=== PATIENT | male | born 1960 | race Caucasian/White ===

== ENCOUNTER → 2022-12-29 11:56 | Outpatient (CLI) | payer OTHER, SELFPAY ==
--- NOTE | ~2022-12-29 | XR_ITS ---
Left Shoulder Technique: AP and scapular Y views were obtained. Clinical History: Pain Findings: No fracture or dislocation is seen. Osseous alignment is anatomic. Minimal degenerative magali nges noted the glenohumeral joint and acromioclavicular joint. Soft tissues are unremarkable. Impression: Minimal degenerative changes, as above. Reviewed, dictated and finalized at location . Impression: Minimal degenerative changes, as above.
== END ==
PROVIDERS: PCP Nurse Practitioner Family; Visit Provider Nurse Practitioner Family
DX: M19.012 Primary osteoarthritis, left shoulder (principal)
CPT/HCPCS: 73030

== ENCOUNTER 2023-04-17 10:55 | Outpatient (CLI) | payer OTHER, SELFPAY ==
--- NOTE | 2023-04-17 11:02 | ECG_ITS ---
Measurements Intervals [place] Rate: 71 P: 46 SD: 187 QRS: 34 QRSD: 102 T: 35 QT: 380 QTc: 414 Interpretive Statements SINUS RHYTHM NO PREVIOUS ECG AVAILABLE FOR COMPARISON Electronically Signed On 04-17-2023 14:40:45 CDT by Jazlyn Quinn M.D.
== END 2023-04-17 10:56 | disposition home or self-care (01) ==
LOC: ANHCARD 10:58
PROVIDERS: PCP Family Medicine; Visit Provider Nurse Practitioner Family
DX: R07.9 Chest pain, unspecified (principal)
CPT/HCPCS: 93005

== ENCOUNTER → 2023-09-07 10:55 | Outpatient (CLI) | payer OTHER, SELFPAY ==
--- NOTE | ~2023-09-07 | XR_ITS ---
Left Knee Technique: AP, lateral, and sunrise views were obtained. Clinical History: Pain Findings: No fracture or dislocation is seen. Osseous alignment is anatomic. Mild degenerative spurri ng noted about the knee. Probable minimal chondrocalcinosis of the menisci. Soft tissues are otherwis e unremarkable. No joint effusion is seen. Impression: Mild degenerative change. Minimal chondrocalcinosis of the menisci. Reviewed, dictated and finalized at location [facility] Impression: Mild degenerative change. Minimal chondrocalcinosis of the menisci.
== END ==
PROVIDERS: PCP Family Medicine; Visit Provider Nurse Practitioner Family
DX: M17.12 Unilateral primary osteoarthritis, left knee (principal); M11.262 Other chondrocalcinosis, left knee
CPT/HCPCS: 73564

== ENCOUNTER 2023-09-26 08:22 | Outpatient (CLI) | payer OTHER, SELFPAY ==
--- NOTE | 2023-09-26 08:35 | ECHO_ITS ---
Patient Info Name: Terry Velasco Age: 63 years : 1960 Gender: Male Ht: 74 in Wt: 318 lbs BSA: 2.80 m2 HR: 88 bpm BP: 163 / 95 mmHg Technical Quality: Fair Exam Date: 09/26/2023 9:07 AM Exam Location: Echo Lab Patient Status: Outpatient Admit Date: 09/26/2023 Staff Ordering Physician: Pao Whelan NP Digital Camera Technician: Floridalma Anaya RDCS Attending Provider: Pao Whelan NP Exam Type: CA echo doppler color flow Study Info Indications - chest pain Complete two-dimensional, color flow and Doppler transthoracic echocardiogram is performed. Summary 1. Complete two-dimensional, color flow and Doppler transthoracic echocardiogram is performed. 2. Left ventricular chamber dimension is normal. 3. Left ventricular systolic function is normal, estimated at 60-65%. 4. There is mild concentric increased left ventricular wall thickness. 5. The left ventricular diastolic function is grade I diastolic dysfunction. 6. E/e' 8 is minimally elevated. 7. Left atrial chamber dimension is mildly enlarged. 8. There is trace mitral valve regurgitation. 9. There is trace tricuspid valve regurgitation. 10. No pulmonary hypertension, estimated pulmonary arterial systolic pressure is 26 mmHg. Left Ventricle E/e' 8 is minimally elevated. Left ventricular chamber dimension is normal. Left ventricular systolic function is normal, estimated at 60-65%. There is mild concentric increased left ventricular wall thickness. The left ventricular diastolic function is grade I diastolic dysfunction. Right Ventricle Right ventricular systolic function is normal and with normal TAPSE 2.3 cm. Right ventricular chamber dimension is normal. Left Atria Left atrial chamber dimension is mildly enlarged. Right Atria Right atrial chamber dimension is normal. Aortic Valve The aortic valve is trileaflet. There is no aortic valve stenosis. There is no aortic valve regurgitation. Pulmonic Valve There is no pulmonic regurgitation. Mitral Valve There is no mitral valve stenosis. There is trace mitral valve regurgitation. Tricuspid Valve There is trace tricuspid valve regurgitation. No pulmonary hypertension, estimated pulmonary arterial systolic pressure is 26 mmHg. Pericardium/Pleural There is no pericardial effusion. Inferior Vena Cava Normal inferior vena cava with >50% collapse upon inspiration consistent with normal right atrial pressure, 5 mmHg. Aorta The aortic root size at the sinus of Valsalva is normal. Left Ventricular Outflow Tract Name Value Normal LVOT 2D LVOT Diameter 2.1 cm LVOT Doppler LVOT Peak Gradient 4 mmHg LVOT Mean Gradient 2 mmHg LVOT VTI 19 cm LVOT VTI/AV VTI Ratio 0.7 LVOT Stroke Volume 66 ml LVOT CO 15.5 l/min LVOT CI 5.5 l/min/m2 Pulmonic Valve Name Value Normal RVOT Doppler
--- NOTE | 2023-09-26 08:35 | EST_ITS ---
Patient Info Name: Terry Velasco Age: 63 years : 1960 Gender: Male Ht: 75 in Wt: 300 lbs BSA: 2.73 m2 HR: 82 bpm BP: 148 / 90 mmHg Heart Rhythm: Sinus Rhythm Exam Date: 09/26/2023 10:01 AM Exam Location: Echo Lab Patient Status: Outpatient Admit Date: 09/26/2023 Staff Ordering Physician: Pao Whelan NP Attending Provider: Pao Whelan NP Exercise Technologist: Keisha Voss [facility] Exercise Physician: Antwan Vora DO Exam Type: CA stress test treadmill Study Info A treadmill exercise stress test was performed. Summary 1. 1. Negative Andre exercise stress test for ischemic ST changes by ECG criteria. 2. 2. Reduced functional capacity, achieving 5 METs of workload. 3. 3. Baseline hypertension. 4. 4. Appropriate HR response to exercise. 5. 5. Appropriate HR recovery at 1 minute post exercise. 6. 6. No imaging with stress testing. 7. 7. Patient informed of the above results. Protocol: Andre Stress ECG Details Stage: REST Duration (min): 1 min : 11 sec Speed (mph): 0.0 Grade (%): 0 HR (bpm): 81 SBP (mmHg): 148 DBP (mmHg): 90 METS: --- Stage: REST Duration (min): 8 min : 8 sec Speed (mph): 0.0 Grade (%): 0 HR (bpm): 88 SBP (mmHg): 148 DBP (mmHg): 90 METS: --- Stage: STAGE 1 Duration (min): 1 min : 0 sec Speed (mph): 1.7 Grade (%): 10 HR (bpm): 113 SBP (mmHg): 148 DBP (mmHg): 90 METS: --- Stage: STAGE 1 Duration (min): 2 min : 0 sec Speed (mph): 1.7 Grade (%): 10 HR (bpm): 124 SBP (mmHg): 148 DBP (mmHg): 90 METS: --- Stage: STAGE 1 Duration (min): 3 min : 0 sec Speed (mph): 1.7 Grade (%): 10 HR (bpm): 132 SBP (mmHg): 165 DBP (mmHg): 122 METS: --- Stage: STAGE 2 Duration (min): 0 min : 12 sec Speed (mph): 2.5 Grade (%): 12 HR (bpm): 133 SBP (mmHg): 165 DBP (mmHg): 122 METS: --- Stage: RECOVERY Duration (min): 0 min : 47 sec Speed (mph): 0.0 Grade (%): 0 HR (bpm): 131 SBP (mmHg): 165 DBP (mmHg): 122 METS: --- Stage: RECOVERY Duration (min): 1 min : 47 sec Speed (mph): 0.0 Grade (%): 0 HR (bpm): 105 SBP (mmHg): 165 DBP (mmHg): 122 METS: --- Stage: RECOVERY Duration (min): 2 min : 47 sec Speed (mph): 0.0 Grade (%): 0 HR (bpm): 100 SBP (mmHg): 196 DBP (mmHg): 89 METS: --- Stage: RECOVERY Duration (min): 3 min : 47 sec Speed (mph): 0.0 Grade (%): 0 HR (bpm): 98 SBP (mmHg): 196 DBP (mmHg): 89 METS: --- Stage: RECOVERY Duration (min): 4 min : 47 sec Speed (mph): 0.0 Grade (%): 0 HR (bpm): 93 SBP (mmHg): 160 DBP (mmHg): 92 METS: --- Stage: RECOVERY Duration (min): 5 min : 12 sec Speed (mph): 0.0 Grade (%): 0 HR (bpm): 93 SBP (mmHg): 160 DBP (mmHg): 92 METS: --- Rest HR: 88 bpm Peak HR: 136 bpm Rest Sys BP: 148 mmHg Peak Sys BP: 196 mmHg Max Pred HR: 156 bpm % Max Pred HR: 87 % Target HR: 133 bpm Max RPP: 26,656 bpm*mmHg
== END 2023-09-26 08:23 | disposition home or self-care (01) ==
PROVIDERS: PCP Family Medicine; Visit Provider Nurse Practitioner Family
DX: R07.9 Chest pain, unspecified (principal)
CPT/HCPCS: 93017; 93306

== ENCOUNTER 2024-10-08 08:50 | Outpatient (CLI) | payer MEDICARE, OTHER, SELFPAY ==
--- NOTE | 2024-11-03 09:10 | WPDSLEEPSTUD ---
Sleep Study Date of Study: 10/08/24 Ordering Provider: Bahman Velasquez MD Interpreting Physician: Jillian Franco DO Sleep Study Type: Split Polysomnogram Height: 1.88 m Weight: 156.489 kg Body Mass Index: 44.3 Neck Circumference (inches): 19 [place]: 3 Reason for Sleep Study Difficulty staying asleep Sleep History The patient is a 64-year-old male that had a sleep study ordered by his primary care physician for evaluation of sleep apnea. The patient denies awakening from sleep short of breath. He denies awakening at night with heartburn, belching or cough. He frequently snores but is never loud enough that others complain. He denies having trouble sleeping when he has a cold. He denies waking up gasping for air throughout the night. He denies having breathing problems at night observed by himself or others. He occasionally sweats excessively at night. He denies having heart palpitations or irregular heartbeats during the night. He occasionally falls asleep during the day but never while driving. He denies sleep paralysis and cataplexy. He denies having trouble at school or work due to sleepiness. He rarely experiences vivid dreamlike scenes upon awakening or falling asleep. He denies feeling afraid of going to sleep. He denies having nightmares. He occasionally remembers his dreams. He occasionally has thoughts racing through his mind. He occasionally feels sad or depressed. He constantly has anxiety. He rarely has muscular tension. He frequently notices parts of his body jerk. He rarely kicks during the night. He frequently has crawling and aching feelings in his legs but rarely has leg pain during the night. He occasionally grinds his teeth during sleep but denies awakening with morning jaw pain. He is rarely bothered by pain during the day and rarely awakened by pain during the night. He occasionally wakes up feeling stiff in the morning. He occasionally wakes up with sore or achy muscles. He occasionally wakes up with pain in the neck, spine and other joints. Goes to bed at 10:00 p.m. on both weekdays and weekends. It takes him 30 minutes to fall asleep. He wakes up 3-4 times throughout the night for unknown reasons and it takes him 30 minutes to fall back asleep. He wakes up at 5:00 a.m. on both weekdays and weekends. He typically gets 4-6 hours of sleep per night. He will stay in bed for 2 hours after waking up in the morning. He currently lives with his . He denies consuming any caffeinated beverages within 2 hours of bedtime. He denies engaging in physical exercise before bedtime. He will read and watch television before falling asleep. He denies taking naps in afternoon or the evening. He denies consuming any caffeinated beverages throughout the day. He denies tobacco, alcohol and recreational drug use. [facility] Past Medical History Medical History Colon cancer screening Cologuard was negative on 06/15/2024 with recheck in 3 years. Left knee pain BMI 40.0-44.9, adult Hypersomnia Snoring BMI 38.0-38.9,adult Nocturnal sleep-related eating disorder Excess sun exposure Hammertoe of right foot Chest pain Exercise stress test on 09/26/2023 was negative for ischemia with decreased functional capacity. Echocardiogram revealed normal systolic function with ejection fraction of 60-65% with grade 1 diastolic dysfunction and trace mitral valve regurgitation and tricuspid valve regurgitation Irritation of right eye Corneal irritation of right eye Left shoulder pain COVID-19 (11/16/22) tested positive 11/18/2022 At moderate risk for fall (~2021) Morbid obesity with BMI of 40.0-44.9, adult Encounter for prostate cancer screening PSA 0.23 on 05/09/2022. PSA 0.32 on 10/18/2023. Tremor Anemia hemoglobin 15.7 with hematocrit 47.0 on 10/20/2022. Hemoglobin 15.9, iron 121, 30% saturation, ferritin 40, vitamin B12 562, folic acid 24 on 05/15/2024. Insomnia Nocturia PSA 0.23 on 05/09/2022. Constipation due to opioid therapy Chronic depression BMI 36.0-36.9,adult Obesity (BMI 30-39.9) Vitamin D deficiency Level slightly low at 29 on 05/09/2022. Normal at 43 on 05/14/2023. Vitamin B12 deficiency normal at 1268 with folic acid 24 and hemoglobin 15.8 on 05/09/2022. Normal at 1861 on 05/14/23. Normal at 562 on 05/15/2024. Peripheral polyneuropathy secondary to alcohol abuse. Normal vitamin B12 and folic acid. SRIDHAR (generalized anxiety disorder) Abnormal fasting glucose Glucose 75 with hemoglobin A1c 5.3 on 05/09/2022. Glucose 96 on 10/10/2022. Glucose 89 with hemoglobin A1c 5.4 on 05/14/2023. Fasting glucose 107 on 10/18/2023. Glucose 98 with hemoglobin A1c 5.9 on 05/15/2024. Mixed hyperlipidemia Total cholesterol 251, triglycerides 164, HDL 57 and LDL 163 on 05/09/2022. Total cholesterol 241, HDL 47, triglycerides 170, LDL 162 with ratio of 5.1 on 10/10/2022. Cholesterol 219, triglycerides 199, HDL 47, LDL 138 with ratio 4.7 on 05/14/2023. Total cholesterol 221, triglycerides 217, HDL 51, triglycerides 134 with ratio 4.3 on 10/18/2023. Cholesterol 228, triglycerides 138, HDL 52, LDL 149 with ratio 4.4 on 05/15/2024. Chronic bilateral low back pain without sciatica Spinal stenosis Neuropathy Hypertension History of blood clots Anxiety Surgical History Surgical History Previous back surgery History of surgery on upper extremity History of left knee surgery H/O hernia repair Family History Family History Father Family history of coronary artery disease Patient's father is , Onset Age: 59 Alcoholism Mother Patient's mother is , Onset Age: 76 Cancer Depression Grandparent Heart disease Other Hypertension Social History Social History Smoking status: Former smoker Tobacco type: smokeless tobacco Smokeless tobacco user: chewing tobacco Smoking end date: 09/03/08 Alcohol intake: former Alcohol use details: stopped in 2017 Substance use: never Substance use type: does not use Do You Feel Safe in your Home?: Yes Lack of Transportation: No Lack of Food: Never True Current Housing: I Have Housing Concerned About Future Housing: No Difficulty Paying Gas/Electric Bills: No Difficulty Paying for Meds: Decline to Answer Currently Unemployed: No Education: Trade/Vocational Certificate Difficulty w/ Childcare or Family Care: No Living arrangements: with family Occupation/Education: retired Gender identity (if verbalized by the patient): Male Sexual Orientation (if Verbalized by the Patient): Straight or Heterosexual Spiritual care concerns: No Agree to blood products: Yes Medications Home Medications ?Medication ?Instructions ?Recorded ?Confirmed ?Type cyanocobalamin (vitamin B-12) 1,000 mcg PO DAILY 05/09/22 07/18/24 History 1,000 mcg tablet cholecalciferol (vitamin D3) 125 5,000 unit PO DAILY 06/06/22 07/18/24 History mcg (5,000 unit) tablet magnesium oxide 500 mg PO BID 11/09/22 07/18/24 History multivitamin 1 tablet PO DAILY 11/09/22 07/18/24 History gabapentin 600 mg tablet 600 mg PO TID #270 tabs 02/21/24 07/18/24 Rx bupropion HCl 150 mg 24 hr tablet, 150 mg PO QAM #90 tabs 06/19/24 07/18/24 Rx extended release (Wellbutrin XL) duloxetine 60 mg capsule,delayed 60 mg PO DAILY #90 caps 07/18/24 07/18/24 Rx release buspirone 15 mg tablet 15 mg PO TID #270 tabs 09/17/24 Rx Sleep Procedure A full night split study using the [employer] multi-channel system recorded the standard physiologic parameters including EEG, EOG, submentalis EMG, anterior tibialis EMG, EKG, body position, nasal and oral airflow using nasal pressure sensor and thermistor.? Respiratory parameters of chest and abdominal movements were recorded with Respiratory Inductance Plethysmography belts. Oxygen saturation was recorded by pulse oximetry. Video monitoring was also performed. Sleep stages, periodic limb movements, and EEG arousals were scored in 30 second epochs according to the criteria of the AASM Scoring Manual. The Apnea-Hypopnea Index was calculated using CMS guidelines for definition of hypopnea with 4% O2 desaturations while scoring respiratory events. Sleep Architecture During the diagnostic portion of the study, the total recording time was 204.6 minutes. The total sleep time was 176.0 minutes. Sleep latency was 9.6 minutes.? REM latency was 174.0 minutes. Sleep Efficiency was 86.0%. The patient had 11 awakenings for an awakening index of 3.8. Wake after sleep onset time was 19.0 minutes. The patient spent 31.0 minutes, 17.6% of total sleep time in Stage N1. The patient spent 111.0 minutes, 63.1% in Stage N2. The patient spent 22.0 minutes, 12.5% in Stage N3. The patient spent 12.0 minutes, 6.8% in Stage REM sleep. At 01:37:00 AM the patient was placed on PAP treatment and was titrated at pressures ranging from 5 cm H20 up to 11 cm H20. During the treatment portion of the study, the total recording time was 265.0 minutes.? The total sleep time was 194.5 minutes. Sleep latency was 5.0 minutes. REM latency was 69.0 minutes. Sleep Efficiency was 73.4%. Wake after Sleep Onset time was 66.0 minutes. The patient spent 33.0 minutes, 17.0% of total sleep time in Stage N1. The patient spent 139.0 minutes, 71.5% in Stage N2. The patient spent 0.0 minutes, 0.0% in Stage N3. The patient spent 22.5 minutes, 11.6% in Stage REM. REM without atonia was seen on the following epochs: 395-396, 398, 401-403, 572-586, 845-846, 848-849, 851, 853 and 878. Gross movement of extremities were seen on video. Respiratory Analysis During the diagnostic portion of the study, the patient had 36 hypopneas and 2 obstructive apneas for an overall Apnea Hypopnea Index of 13.0 events per hour. The REM Apnea Hypopnea Index was 50.0. The NREM Apnea Hypopnea Index was 10.6. The patient had a Central Apnea Hypopnea Index of 0. There was no evidence of Basil-Drummond Respirations. During the treatment portion of the study, the patient had 16 hypopneas for an overall Apnea Hypopnea Index of 4.9 events per hour. The REM Apnea Hypopnea Index was 2.7. The NREM Apnea Hypopnea Index was 5.2. The patient had a Central Apnea Hypopnea Index of 0. There was no evidence of Basil-Drummond Respirations. The patient was started on CPAP 5 cm H2O and titrated to CPAP 11 cm H2O due to hypopneas. The patient was able to fall asleep starting on CPAP 5 cm H2O. The patient was able to achieve REM sleep starting on CPAP 5 cm H2O. The patient was able to achieve a residual AHI with both NREM and REM sleep on 5 cm H2O. On CPAP 5 cm H2O, the patient spent 102 minutes in NREM and 12 minutes in REM with 2 hypopneas, resulting in an AHI of 1.1. The patient had a sleep efficiency of 73.5% on this pressure setting. While the patient's sleep apnea resolved on CPAP 5 cm H2O, his oxygen saturation dropped to 86% when he switched to his left side. Arousals During the diagnostic portion of the study, there were a total of 75 arousals for an arousal index of 25.6.? There were 22 respiratory arousals for an index of 7.5. There were 4 periodic limb movement arousals for an index of 1.4.? There were 5 isolated limb movement arousals for an index of 1.7. There were 43 spontaneous arousals for an index of 14.7. During the treatment portion of the study, there were a total of 54 arousals for an index of 16.7.? There were 8 respiratory arousals for an index of 2.5. There were 0 periodic limb movement arousals for an index of 0.? There were 6 isolated limb movement arousals for an index of 1.9. There were 39 spontaneous arousals for an index of 12.0. Periodic Limb Movements During the diagnostic portion of the study, the patient had 9 isolated limb movements with an index of 3.1. The patient had 23 periodic limb movements with an index of 7.8. The patient had a total of 32 limb movements with a total limb movement index of 10.9. During the treatment portion of the study, the patient had 26 isolated limb movements with an index of 8.0. The patient had 0 periodic limb movements with an index of 0. The patient had a total of 26 limb movements with a total limb movement index of 8.0. Oximetry Data During the diagnostic portion of the study, the patient had an average oxygen saturation of 90.7% in wake with a minimum oxygen saturation of 84% and a maximum oxygen saturation of 95%. The patient had an average oxygen saturation of 89.9% in sleep with a minimum oxygen saturation of 81.0% and a maximum oxygen saturation of 95.0%. The patient had 66 oxygen desaturations resulting in an Oxygen Desaturation Index of 22.5. The patient spent 44.2 minutes, 21.7% of total sleep time with an oxygen saturation less than 88%. During the treatment portion of the study, the patient had an average oxygen saturation of 90.3% in wake with a minimum oxygen saturation of 84.0% and a maximum oxygen saturation of 96.0%. The patient had an average oxygen saturation of 89.5% in sleep with a minimum oxygen saturation of 85.0% and a maximum oxygen saturation of 96.0%. The patient had 23 oxygen desaturations resulting in an Oxygen Desaturation Index of 7.1. The patient spent 75.7 minutes, 28.7% of total sleep time with an oxygen saturation less than 88%. Snoring Profile Mild snoring was present in the baseline portion of the study. The snoring resolved once the patient was started on CPAP. Cardiac Profile The EKG lead showed normal sinus rhythm. No arrhythmias or premature beats were seen. During the diagnostic portion of the study, the average pulse rate was 76.8 bpm.? The minimum pulse rate was 66.0 bpm. The maximum pulse rate was 104.0 bpm. During the treatment portion of the study, the average pulse rate was 77.2 bpm.? The minimum pulse rate was 66.0 bpm. The maximum pulse rate was 101.0 bpm. EEG Profile No signs of seizure activity seen. Assessment and Plan Assessment and Plan (1) SANCHO (obstructive sleep apnea): Code(s): G47.33 - Obstructive sleep apnea (adult) (pediatric) Status: Acute Assessment and Plan: During the baseline portion of the study, the patient had an overall AHI of 13.0 with desaturation down to 81%. This is consistent with mild sleep apnea. Due to the patient's insomnia, he qualifies for treatment. The patient's sleep apnea resolved on the initial pressure setting but his SpO2<88%. There is concern for underlying lung disease due to hypoxemia in the absence of respiratory events. Supplemental oxygen was not started in this study. I recommend that the patient be prescribed Resmed CPAP 5 cm H2O with 2 lpm of O2, size medium Resmed F20 full face mask, CPAP filters/tubing and heated humidity. I recommend that the patient undergo nocturnal oximetry 2 weeks after starting CPAP to ensure his SpO2 > 90%. This should be used with all episodes of sleep.? Compliance should be reviewed within 31-90 days of starting therapy for usage greater than 4 hours per night greater than 70% of the nights. The patient should be asked about symptoms such as?excessive daytime sleepiness, quality of sleep, decreased nocturia, increased?mental functioning such as memory, mood, and concentration. I recommend that this patient be followed by Sleep Medicine due to the complexity of his sleep issues. (2) Nocturnal hypoxemia: Code(s): G47.34 - Idiopathic sleep related nonobstructive alveolar hypoventilation Status: Acute Assessment and Plan: The patient had a baseline oxygen saturation of 90% while awake in the left lateral position. In the baseline portion of the study, he spent 75.7 minutes, 28.7% of total recording time with an SpO2<88%. The level of hypoxemia is out of proportion to the patient's sleep apnea severity. The patient has no history of lung disease and is not on any inhalers. There is concern for underlying lung disease. i recommend that the patient have a 2 view CXR and a PFT for further evaluation. (3) REM behavioral disorder: Code(s): G47.52 - REM sleep behavior disorder Status: Acute Assessment and Plan: REM without atonia was seen on the following epochs: 395-396, 398, 401-403, 572-586, 845-846, 848-849, 851, 853 and 878. Gross movement of extremities were seen on video. Rapid eye movement (REM) sleep behavior disorder (RBD) is a parasomnia characterized by dream enactment that emerges after a loss of REM sleep atonia. Behaviors are brief, correlate with dream mentation, mainly occur in the second half of the night, and, when violent, can result in injury to the patient or bed partner.?The prevalence of RBD is estimated at 0.5 to 1.25 percent in the general population, with higher frequencies among older adults and those with Parkinson disease (PD), multiple system atrophy, and dementia with Lewy bodies. Most cases of RBD are caused by alpha-synuclein neurodegeneration. RBD is also caused by antidepressant medications, narcolepsy, and pontine lesions such as those from stroke or multiple sclerosis. All patients with RBD and their bed partners should be counseled on ways to alter the sleeping environment to prevent injury.? The frequency of dream enactment behaviors is not predictive of injury, so all patients with RBD and their bed partners should be counseled on modifying the sleeping environment to prevent injury. For patients with mild symptoms, this may be all that is needed. The punching, kicking, and jumping behaviors can result in hematomas, fractures, lacerations, and joint dislocations. Bed partners are frequently the target of violent dream enactment, and RBD has rarely been implicated in charges of domestic assault. Firearms should not be accessible, and sharp or easily breakable furniture and objects (such as lamps) should be removed from the immediate sleeping area. In the event of continued vigorous behaviors, sleeping alone is advised. Many patients resort to using padded bed rails or sleeping in a sleeping bag. Exiting the bed while acting out a dream is a high-risk behavior that may result in traumatic injury. All patients with frequent, disruptive, or injurious behaviors should be treated with pharmacotherapy to reduce behaviors and lower risk of injury. Melatonin is our preferred first-line therapy in patients with frequent, disruptive or injurious behaviors. Patients should be started on 3 mg of melatonin at bedtime and the dose should be increased by 3 mg every week until dream enactment behavior resolves. The dose of melatonin required to suppress behaviors in patients with RBD varies. In our experience, most patients achieve significant improvement with doses ranging from 6 to 18 mg nightly.? Data The data obtained during this sleep study is adequate for interpretation. Certification This sleep study has been reviewed by a board certified sleep medicine physician.
[2024-11-03 11:35] VITALS: BMI 44.3
== END 2024-10-09 06:45 | disposition home or self-care (01) ==
LOC: ANHCSM 08:51
PROVIDERS: Visit Provider Family Medicine
DX: G47.33 Obstructive sleep apnea (adult) (pediatric) (principal); G47.34 Idiopathic sleep related nonobstructive alveolar hypoventilation; G47.52 REM sleep behavior disorder; G47.10 Hypersomnia, unspecified; R06.83 Snoring; F39 Unspecified mood [affective] disorder
CPT/HCPCS: 95811

== ENCOUNTER 2025-01-22 08:08 | Outpatient (CLI) | payer MEDICARE, OTHER, SELFPAY ==
--- OUTSIDE RECORDS SUMMARY | 2025-01-22 08:14 | XMS_ITS ---
attend walk-in clinic for therapy with Emily. rhoades Suicide safety plan in place, and patient agrees to dial [phone] in case of crisis or worsening suicidal thoughts. 2. Generalized Anxiety Disorder (SRIDHAR) - Patient reports anxiety levels of 6 or 7 out of 10 with a SRIDHAR score of 18. - Plan: a. Continue buspirone 10 mg in the morning, 10 mg in the afternoon, and 15 mg at night. b. Encourage the patient to engage in therapy for anxiety management. 3. Insomnia and Sleep Disturbances - Patient reports broken sleep with insomnia and restlessness. - Plan: a. Address sleep disturbances with quetiapine 50 mg extended-relea se at 7 pm. b. Encourage the patient to maintain a consistent sleep schedule and practice good sleep hygiene. 4. Weight Gain and Nighttime Eating - Patient reports getting up at night to eat. - Plan: a. Discuss the importance of a high-protein, low-carb diet and the use of protein shakes or protein bars before bed. b. Monitor weight changes and discuss the risk of weight gain with atypical antipsychotics . 5. Suicidal Ideation - Patient reports passive suicidal ideation with a long-standing plan but denies intent. - Patient has a family history of multiple family members completing suicide. - Plan: a. Ensure the suicide safety plan is in place and patient understands to dial [phone] in case of crisis or worsening suicidal thoughts. b. Monitor for any changes in suicidal ideation during follow-up visits. Follow-up: - Plan: Schedule a follow-up appointment in one month or sooner if needed to assess the patient's response to the treatment plan and address any concerns or changes in symptoms. - Patient lives with significant other and grandkids are in town, serving as protective factors. 12/01/2024 Other SPRAVATO is contraindicated in patients with: Aneurysmal vascular disease (including thoracic and abdominal aorta, intracranial and peripheral arterial vessels) or arteriovenous malformation No History of intracerebral hemorrhage No Hypersensitivity to Esketamine, ketamine, or any of the ingredients No UNCONTROLLED HYPERTENSION Yes Hypertension is not an absolute contraindication Onset date of the current episode of depression is August 2024 have a current episode of depression for the last 4 months, no periods of time without depression and during this time frame do not have two months in which there are no significant symptoms of depression. ??? Psychotherapy: in psychotherapy, Frequency not in therapy with therapist not in therapy Do Yes have active suicidal ideation and suicide risk assessment has been documented. Exclusions TMS is not covered in the following circumstances and is considered not reasonable and necessary. 1 Presence of psychotic symptoms in the current episode No 2 There is a presence of conductive, ferromagnetic, or other magnetic-sensitive metals implanted in their head, which are non-removable and within 30cm of the TMS magnetic coil. Examples include: a cochlear implants, No b implanted electrodes/stimula tors in the brain No c Aneurysm clips or coil, No d Stents, No e. bullet fragments No f Other metal devices or objects implanted in the head No g Facial Tattoo with metal ink or permanent makeup No 3 Diagnosed with Schizophrenia, Schizophreniform Disorder, or Schizoaffective No 4 Seizure Disorder No Yes will be a good candidate for TMs Therapy. Treatment history was reviewed. Major Depressive Disorder with Psychotic Features Assessment: Patient reports ongoing depression with a current PHQ-9 score of 19. He acknowledges having passive thoughts of suicide without plan or intent. Recent discontinuation of bupropion noted. Plan: - Discontinue quetiapine 100mg XR at night - Start trazodone at night for depression and sleep. - Initiate process for Spravato (esketamine) nasal spray treatment * Informed patient about 2-hour observation period post-administrati on * Discussed need for stable blood pressure before treatment * Consider prescribing clonidine PRN for blood pressure control on Spravato treatment days - Schedule appointment with Dr. Espino to discuss Transcranial Magnetic Stimulation (TMS) therapy - Continue buspirone 45mg daily (10mg morning, 15mg night) - Continue duloxetine 60mg daily - Monitor blood pressure regularly - Provided crisis prevention hotline information and reviewed when to seek emergency services The note is transcribed using speech recognition software. It is a reflection of a visit with the patient. It might have some inaccuracy, including medication names and transcribing errors, though efforts have been made to correct them. 12/08/2024 Other Problem-Based Assessment and Plan Taz Velasco, a 64-year-old retired male with a history of alcoholism (sober for 10 years), presents with symptoms of depression, anxiety, and sleep disturbances. Major Depressive Disorder Assessment: Patient reports persistent depressive symptoms, including low mood, anhedonia, fatigue, and lack of motivation. He expresses feelings of uselessness and occasional passive suicidal ideation. There is a family history of suicide on the maternal side. The patient has tried multiple antidepressants with limited success, including duloxetine, bupropion, and sertraline. Recent weight gain of 40 pounds and nighttime eating behaviors are noted. The patient's depression appears to be treatment-resista nt, given the inadequate response to multiple medication trials. Plan: - Continue current antidepressant regimen (specific medication and dosage not mentioned in transcript) - Initiate paperwork for Spravato (esketamine) nasal spray treatment, pending insurance approval and completion of required therapy sessions - Patient to complete remaining 9 therapy sessions (3 out of 12 completed) - Consider Transcranial Magnetic Stimulation (TMS) as an alternative treatment option - Submit prior authorization request for Spravato to determine insurance coverage and benefit type - Follow up on insurance coverage and patient cost for Spravato treatment Generalized Anxiety Disorder Assessment: Patient reports improvement in anxiety symptoms with current medication regimen. He is able to sit calmly and watch TV, indicating some reduction in restlessness and agitation. Plan: - Continue BuSpar (buspirone) 10 mg PO in the morning and 15 mg PO at night - Monitor for effectiveness and side effects of current dosage adjustment Insomnia Assessment: Patient reports improved sleep with current medication regimen, though he still experiences nighttime awakenings associated with eating behaviors. A sleep study has been conducted, but results were not discussed in the transcript. Plan: - Continue current sleep medication regimen: atropine 50 mg and temazepam 50 mg at bedtime - Discontinue trazodone due to lack of efficacy - Follow up on sleep study results (not mentioned in transcript) History of Alcohol Use Disorder Assessment: Patient reports a history of alcoholism with 42 years of drinking, now sober for 10 years. He attended AA meetings for an extended period. 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 Further pulmonary testing is needed to assess the severity and impact of the condition. Plan: - Schedule pulmonary function testing to evaluate the extent of asbestosis - Follow up on test results and develop management plan accordingly Disclaimer: This note has been transcribed using speech recognition software and serves as a reflection of the patient's visit. While efforts have been made to ensure accuracy, there may be errors, including health services information specialist inaccuracies and misspellings of medication names. This document should not be considered a verbatim record, and any discrepancies should be verified with the provider. 12/24/2024 Other referral to the local chapter or national office of the Alzheimer's Association ( ; http://www.alz.org ), the Alzheimer's Disease Education and Referral [facility] (ADEAR) ( ; http://www.garry.nih .gov/Alzheimers/), 01/08/2025 Other Major Depressive Disorder Assessment: Patient reports ongoing depressive symptoms, including passive suicidal ideation without plan or intent. Current medication regimen includes duloxetine, buspirone, and quetiapine. Patient expresses interest in Spravato (esketamine) treatment for depression management. Sleep disturbances are noted, potentially exacerbated by untreated sleep apnea. Plan: - Initiate Spravato (esketamine) treatment - Informed patient of twice-weekly appointments during Spravato treatment - Advised patient to take blood pressure medications before Spravato appointments due to potential blood pressure increase - Discontinue extended-release quetiapine - Start quetiapine 100 mg tablet po daily. - Continue duloxetine in the morning - Continue buspirone - Provided crisis prevention hotline number (544) - Follow-up: Twice weekly during Spravato treatment Sleep Apnea Assessment: Patient reports sleep disturbances, likely related to untreated sleep apnea. CPAP therapy has been recommended and is in process of being obtained. Sleep apnea is contributing to poor sleep quality and may be exacerbating depressive symptoms. Plan: - Encourage use of CPAP machine once obtained - Educate patient on the impact of sleep apnea on overall health and mental well-being The note is transcribed using speech recognition software. It is a reflection of a visit with the patient. It might have some inaccuracy, including medication names and transcribing errors, though efforts have been made to correct them. Plan Of Treatment Pending Test Test Name Order Date UDT 07/21/2024 Future Test Test Name Order Date SLUMS Testing 12/08/2024 Insurance Providers Payer Name Payer Address Payer Phone Subscriber Number Group Number Insured Name Patient Relationship to Insured Coverage Start Date Coverage End Date [facility] [address] [address] [place] [address] [id number] TAZ VELASCO Self - patient is the insured [employer] Medicare Supplement [address] [address] [place] [address] [id number] TAZ VELASCO Self - patient is the insured Medical (General) History Medical History History ICD Code Problems: Chronic post-traumatic stress disorder Generalized anxiety disorder Idiopathic peripheral neuropathy Mild recurrent major depression Obesity Primary insomnia Severe recurrent major depression withou t psychotic features Spinal stenosis of lumbar region , abdominal aortic aneurysm: No undefined atrial fibrillation: No chronic fatigue syndrome: No essential tremor: No hyperlipidemia: No hypertension: Yes Parkinson's disease: No restless leg syndrome: No stroke: No subdural hematoma: No type 1 diabetes mellitus: No type 2 diabetes mellitus: No vitamin B12 deficiency: No vitamin D deficiency: No diabetes insipidus hyperlipidemia hypertension Surgical History Surgery Date(Month/Year) Surgical procedure ([id number]) hernia repair knee surgery hand surgery shoulder surgery back surgery Hospitalization History Reason Date(Month/Year) pulmonary embolism
--- OUTSIDE RECORDS SUMMARY | 2025-01-22 08:14 | XMS_ITS ---
Author Organization [facility] Address [address] [place] [address] Care Team Providers Care Freelance Data Entry Name Role Phone Jada Espinoy Unavailable [phone] Deandre Loco Unavailable [phone] REASON FOR VISIT Walk-In, pt wants to talk about spravato Medications Medication SIG (Take, Route, Frequency, Duration) Notes Start Date End Date Status Spravato (84 MG Dose) 28 MG/DEVICE 3 sprays in each nostril Nasally twice a week pt wants to know the cost before starting treatment 12/08/2024 Active metFORMIN HCl 500 MG 1 tablet with a shaw l Orally twice a day Active Gabapentin 300 MG 1 capsule Oral three times a day for 90 days Active QUEtiapine Fumarate 100 MG 1 tablet Orally Once a day 01/08/2025 Active busPIRone HCl 10 MG 1 tablet Oral Twice a day for 90 days 10mg in the afternoon, 10 mg in the morning, afternoon and 15 at night Active busPIRone HCl 15 MG 1 tablet Orally Once a day for 30 days 10 mg in the morning, afternoon and 15 at night Active DULoxetine HCl 60 MG 1 capsule Oral Once a day for 30 days Active QUEtiapine Fumarate 100 MG 1 tablet at bedtime Orally Once a day for 90 days 01/08/2025 Active Spravato (56 MG Dose) 28 MG/DEVICE 2 sprays in each nostril Nasally once pt wants to know the cost before starting treatment 12/08/2024 Active Social History Sex Assigned At : Social History Observation Description Sex Assigned At Male Encounters Encounter Location Date Provider Diagnosis [facility], Walkin [address] [place] [address] 01/14/2025 Deandre Loco Plan Of Treatment No Information Progress Notes * TAZ MCCLAIN RDOB:1960 (64 yo M)Acc No.[id number]:01/14/2025 Patient: TAZ JIMENEZ Provider: DEANNA Philippe :1960 A ge:64 Y S ex:Male Date:01/14/2025 Address:[address] [place] [address], [id number] Subjective: * Chief Complaints: * 1 . Walk-In, pt wants to talk about spravato. * Medical History: * Medications: T aking busPIRone HCl 15 MG Tablet 1 tablet Orally Once a day , Notes to Pharmacist: 10 mg in the morning, afternoon and 15 at night, Taking DULoxetine HCl 60 MG Capsule Delayed Release Sprinkle 1 capsule Oral Once a day , Taking QUEtiapine Fumarate 100 MG Tablet 1 tablet at bedtime Orally Once a day , Taking Spravato (56 MG Dose) 28 MG/DEVICE Solution Therapy Pack 2 sprays in each nostril Nasally once , Notes to Pharmacist: pt wants to know the cost before starting treatment, Taking Spravato (84 MG Dose) 28 MG/DEVICE Solution Therapy Pack 3 sprays in each nostril Nasally twice a week , Notes to Pharmacist: pt wants to know the cost before starting treatment, Taking metFORMIN HCl 500 MG Tablet 1 tablet with a meal Orally twice a day , Taking QUEtiapine Fumarate 100 MG Tablet 1 tablet Orally Once a day , Taking busPIRone HCl 10 MG Tablet 1 tablet Oral Twice a day , Notes to Pharmacist: 10mg in the afternoon, 10 mg in the morning, afternoon and 15 at night, Taking Gabapentin 300 MG Capsule 1 capsule Oral three times a day Objective: * Vitals: Assessment: Plan: * Treatment: * Billing Information: * Visit Code: * Procedure Codes: * Electronic signature of DEANNA Desai on 01/22/2025 at 08:13 AM CDT Sign off status: Pending * Provider: DEANNA Philippe Date: 01/14/2025 Generated for Lewis crowe/Saurabh/Keyon on: 01/22/2025 08:13 AM CDT
--- NOTE | 2025-01-23 09:45 | WPDPFTINT ---
PFT Procedure Performed PFT Procedure Performed Spirometry with Pre/Post Bronchodilator Plethysmography (Lung Vol) Diffusing Cap (DLCO) Flow Vol Loop PFT Interpretation This is a pulmonary function test with pre and post-bronchodilator spirometry, plethysmography and diffusing capacity. The test was performed and results interpreted in accordance with the 2019 and 2005 ATS/ERS Task Force guidelines respectively using the Global Lung Function Initiative-2012 reference equations. Patient demonstrated good effort and cooperation. Reproducibility criteria were met. The quality of the pre bronchodilator spirometry maneuver was Grade B and post bronchodilator spirometry maneuver was Grade A. Findings: Spirometry: The contour the inspiratory and expiratory flow tracing are normal. The pre bronchodilator FVC is 3.70 L, 70% predicted. The pre bronchodilator FEV1 is 2.70 L, 68% predicted. The pre bronchodilator FEV1: FVC ratio 73%. The post bronchodilator FVC is 4.62 L, representing a 25% increase. The post bronchodilator FEV1 is 3.60 L, representing a 33% increase. The post bronchodilator FEV1: FVC ratio is 78%. Plethysmography: The total lung capacity is 6.59 L, 82% predicted. The functional residual capacity is 2.53 L, 59% predicted. The residual volume is 2.51 L, 95% predicted. Diffusing capacity: The diffusing capacity unadjusted for hemoglobin and carboxyhemoglobin is 29.6, 101% predicted. The diffusing capacity adjusted for alveolar volume is 4.35, 114% predicted. Impression: The FEV1 is less than 80% predicted and the FEV1: FVC ratio is greater than 70% consistent with Preserved Ratio Impaired Spirometry (PRISm) with a decreased FVC. There is significant improvement after inhaling a single dose of albuterol. The total lung capacity and residual volume are normal with a decreased functional residual capacity. This is an abnormal but nonspecific lung volume pattern. The diffusing capacity is normal. There are no prior studies for comparison
== END 2025-01-22 08:09 | disposition home or self-care (01) ==
PROVIDERS: PCP Family Medicine; Visit Provider Nurse Practitioner Family
DX: R94.2 Abnormal results of pulmonary function studies (principal); G47.34 Idiopathic sleep related nonobstructive alveolar hypoventilation
CPT/HCPCS: 94060; 94726; 94729

== ENCOUNTER 2025-02-18 09:42 | Outpatient (CLI) | payer MEDICARE, OTHER, SELFPAY ==
--- NOTE | ~2025-02-18 | US_ITS ---
US breast LT complete INDICATION: Mastodynia. Gynecomastia. TECHNIQUE: Dedicated complete left breast ultrasound COMPARISON: Mammogram dated 02/18/2025 FINDINGS: The left breast is/are composed of normal heterogeneous echotexture without focal solid or cystic mass. IMPRESSION: 1: Normal left breast ultrasound. BI-RADS CATEGORY 1 - NEGATIVE Reviewed, dictated and finalized at location A.
--- NOTE | ~2025-02-18 | MM_ITS ---
EXAMINATION: MM diagnostic kathy LT w joaquin HISTORY: Breast pain TECHNIQUE: Additional 3-D tomosynthesis images of the breasts were performed and synthetic 2-D images were generated. CAD analysis was submitted and interpreted. COMPARISON: None BREAST PARENCHYMAL COMPOSITION: Not dense: There are scattered areas of fibroglandular density. FINDINGS: There is benign bilateral gynecomastia. No suspicious masses, calcifications or architectur al distortion in either breast to suggest malignancy. IMPRESSION: 1. No evidence for malignancy in either breast. 2. Recommend follow-up clinical management for gynecomastia. BI-RADS Category 2: Benign finding(s). Reviewed, dictated and finalized at location A.
== END 2025-02-18 09:43 | disposition home or self-care (01) ==
LOC: MICIMG 09:46
PROVIDERS: PCP Family Medicine; Visit Provider Nurse Practitioner Family
DX: N64.4 Mastodynia (principal)
CPT/HCPCS: 76641; 77061; 77065; G0279

== ENCOUNTER 2025-06-22 15:38 | Outpatient (CLI) | payer MEDICARE, OTHER, SELFPAY ==
--- NOTE | ~2025-06-22 | MR_ITS ---
EXAMINATION: MR shoulder RT wo/w con DATE: 06/22/2025 16:46 INDICATION: Right shoulder pain TECHNIQUE: Magnetic resonance imaging (MRI) of the right shoulder was performed without and with 15 mL Multihance intravenous contrast. Sequences included axial PD-weighted FS FSE, axial T1-weighted FS FSE, coronal oblique PD-weighted FS FSE, coronal oblique T2-weighted FS FSE, sagittal PD-weighted FS FSE, sagittal T1-weighted SE and postcontrast axial, sagittal and coronal T1-weighted FS FSE. COMPARISON: None. FINDINGS: Coracoacromial arch: The acromion undersurface is flat in morphology (type I). The coracoacromial ligament is normal. Moderate acromioclavicular osteoarthritis. Rotator cuff: Mild supraspinatus tendinopathy with small intrasubstance tear extending 1 cm AP along the posterior half of the superior facet footplate of the distal supraspinatus tendon and involving approximately one third of the tendon thickness. Infraspinatus and teres minor tendons are normal. Mild distal subsc apularis tendinopathy without discrete tear. Normal rotator cuff muscle bulk and signal. Biceps tendon, glenoid labrum and glenohumeral cartilage: Moderate tendinopathy without definitive tear of the intra-articular long head biceps tendon. There is a superior, anterior to posterior tear of the glenoid labrum (SLAP tear) of the superior to posterior glenoid labrum. Mild glenohumeral osteoarthritis with nonuniform partial-thickness cartilage loss most prominent along the inferior glenoid. Small marginal osteophytes about the glenoid. Fluid: Physiologic amount of fluid in the glenohumeral joint and biceps tendon sheath. No loose osteochondral bodies. Minimal amount of fluid an enhancing synovitis in the subacromial/subdeltoid bursa consistent with mild bursitis. Bones: Normal marrow signal with no edema, fracture or pathologic marrow replacing process. Mild cystic change at the lesser and greater tuberosities likely related to chronic rotator cuff disease. There is thickening of the joint capsule at the axillary recess along with thickened soft tissue with mild incre ased fluid signal and enhancement replacing the normal T1 hyperintense fat signal at the rotator cuff interval. Both findings are characteristic of adhesive capsulitis which is ultimately a clinical diagnosis. IMPRESSION: 1. Moderate supraspinatus and subscapularis tendinopathy with small intrasubstance tear along the superior facet footplate of the supraspinatus tendon. 2. Mild glenohumeral osteoarthritis with SLAP tear of the superior to posterior glenoid labrum. 3. Moderate tendinopathy without definitive tear of the intra-articular long head biceps tendon. 4. Constellation of findings including increased enhancing soft tissue at the rotator cuff interval and thickening of the capsule at the axillary recess which are characteristic of adhesive capsulitis which is ultimately a clinical diagnosis. 5. Moderate acromioclavicular osteoarthritis with mild underlying subacromial/subdeltoid bursitis. Reviewed, dictated and finalized at location A. IMPRESSION: 1. Moderate supraspinatus and subscapularis tendinopathy with small intrasubsta nce tear along the superior facet footplate of the supraspinatus tendon. 2. Mild glenohumeral osteoarthritis with SLAP tear of the superior to posterior glenoid labrum. 3. Moderate tendinopathy without definitive tear of the intra-articular long he ad biceps tendon. 4. Constellation of findings including increased enhancing soft tissue at the r otator cuff interval and thickening of the capsule at the axillary recess which are characteristic of adhesive capsulitis which is ultimately a clinical diagn osis. 5. Moderate acromioclavicular osteoarthritis with mild underlying subacromial/s ubdeltoid bursitis.
== END 2025-06-22 15:39 | disposition home or self-care (01) ==
LOC: MICIMG 15:39
PROVIDERS: PCP Emergency Medicine; Visit Provider Emergency Medicine
DX: M19.011 Primary osteoarthritis, right shoulder (principal)
CPT/HCPCS: 73223; A9577

== ENCOUNTER 2025-06-24 08:26 | Outpatient (CLI) | payer MEDICARE, OTHER, SELFPAY ==
--- NOTE | ~2025-06-24 | XR_ITS ---
EXAMINATION: XR shoulder RT min 2V, 06/24/2025 8:42 CDT HISTORY: RT SHOULDER PAIN GOES INTO NECK AND DOWN RT ARM x2 MONTHS COMPARISON: No comparisons available. Findings: No acute fracture or malalignment. Moderate degenerative changes Soft tissues unremarkable. Impression: No acute fracture or malalignment. Reviewed, dictated and finalized at location P. Impression: No acute fracture or malalignment.
== END 2025-06-24 08:27 | disposition home or self-care (01) ==
LOC: MICIMG 08:28
PROVIDERS: PCP Emergency Medicine; Visit Provider Emergency Medicine
DX: M25.511 Pain in right shoulder (principal)
CPT/HCPCS: 73030

== ENCOUNTER 2025-08-18 15:06 | Outpatient (CLI) | payer MEDICARE, OTHER, SELFPAY ==
--- OUTSIDE RECORDS SUMMARY | 2025-01-14 08:00 | XMS_ITS ---
Author Organization [facility] Address [address] [place] [address] Care Team Providers Care [address] Name Role Phone Graham Espino Unavailable [phone] Deandre Loco Unavailable [phone] REASON FOR VISIT Walk-In, pt wants to talk about spravato Medications Medication SIG (Take, Route, Frequency, Duration) Notes Start Date End Date Status Spravato (84 MG Dose) 28 MG/DEVICE Solution Therapy Pack 3 sprays in each nostril Nasally twice a week pt wants to know the cost before starting treatment 12/08/2024 Active metFORMIN HCl 500 MG Tablet 1 tablet with a meal Orally twice a day Active Gabapentin 300 MG Capsule 1 capsule Oral three times a day; Duration: 90 days Active QUEtiapine Fumarate 100 MG Tablet 1 tablet Orally Once a day 01/08/2025 Active busPIRone HCl 10 MG Tablet 1 tablet Oral Twice a day; Duration: 90 days 10mg in the afternoon, 10 mg in the morning, afternoon and 15 at night Active busPIRone HCl 15 MG Tablet 1 tablet Orally Once a day; Duration: 30 days 10 mg in the morning, afternoon and 15 at night Active DULoxetine HCl 60 MG Capsule Delayed Release Sprinkle 1 capsule Oral Once a day; Duration: 30 days Active QUEtiapine Fumarate 100 MG Tablet 1 tablet at bedtime Orally Once a day; Duration: 90 days 01/08/2025 Active Spravato (56 MG Dose) 28 MG/DEVICE Solution Therapy Pack 2 sprays in each nostril Nasally once pt wants to know the cost before starting treatment 12/08/2024 Active Social History Sex Assigned At : Social History Observation Description Sex Assigned At Male Encounters Encounter Location Date Provider Diagnosis [facility], [facility] [address] [facility] [address] [place] [address] 01/14/2025 Deandre Loco Plan Of Treatment No Information Progress Notes * TAZ MCCLAIN RDOB:1960 (65 yo M)Acc No.[id number]:01/14/2025 Patient: TAZ JIMENEZ Provider: DEANNA Philippe :1960 A ge:64 Y S ex:Male Date:01/14/2025 Address:[address] [place] [address], [id number] Subjective: * Chief Complaints: * W alk-In, pt wants to talk about spravato * Medications: T akingbusPIRone HCl 15 MG Tablet 1 tablet Orally Once a day , Notes to Pharmacist: 10 mg in the morning, afternoon and 15 at nightDULoxetine HCl 60 MG Capsule Delayed Release Sprinkle 1 capsule Oral Once a day QUEtiapine Fumarate 100 MG Tablet 1 tablet at bedtime Orally Once a day Spravato (56 MG Dose) 28 MG/DEVICE Solution Therapy Pack 2 sprays in each nostril Nasally once , Notes to Pharmacist: pt wants to know the cost before starting treatmentSpravato (84 MG Dose) 28 MG/DEVICE Solution Therapy Pack 3 sprays in each nostril Nasally twice a week , Notes to Pharmacist: pt wants to know the cost before starting treatmentmetFORMIN HCl 500 MG Tablet 1 tablet with a meal Orally twice a day QUEtiapine Fumarate 100 MG Tablet 1 tablet Orally Once a day busPIRone HCl 10 MG Tablet 1 tablet Oral Twice a day , Notes to Pharmacist: 10mg in the afternoon, 10 mg in the morning, afternoon and 15 at nightGabapentin 300 MG Capsule 1 capsule Oral three times a day Taking busPIRone HCl 15 MG Tablet 1 tablet Orally Once a day , Notes to Pharmacist: 10 mg in the morning, afternoon and 15 at nightTaking DULoxetine HCl 60 MG Capsule Delayed Release Sprinkle 1 capsule Oral Once a day Taking QUEtiapine Fumarate 100 MG Tablet 1 tablet at bedtime Orally Once a day Taking Spravato (56 MG Dose) 28 MG/DEVICE Solution Therapy Pack 2 sprays in each nostril Nasally once , Notes to Pharmacist: pt wants to know the cost before starting treatmentTaking Spravato (84 MG Dose) 28 MG/DEVICE Solution Therapy Pack 3 sprays in each nostril Nasally twice a week , Notes to Pharmacist: pt wants to know the cost before starting treatmentTaking metFORMIN HCl 500 MG Tablet 1 tablet with a meal Orally twice a day Taking QUEtiapine Fumarate 100 MG Tablet 1 tablet Orally Once a day Taking busPIRone HCl 10 MG Tablet 1 tablet Oral Twice a day , Notes to Pharmacist: 10mg in the afternoon, 10 mg in the morning, afternoon and 15 at nightTaking Gabapentin 300 MG Capsule 1 capsule Oral three times a day * Electronic signature of DEANNA Desai on 08/18/2025 at 05:29 PM B[employer]DLE [employer]AKER Sign off status: Pending * Provider: DEANNA Philippe Date: 0 01/14/2025 Generated for Lewis crowe/Saurabh/Keyon on: 1 10/19/2024 05:29 PM BUNDLE [employer]AKER
--- NOTE | ~2025-08-18 | XR_ITS ---
EXAMINATION: XR chest 2V, 08/18/2025 15:25 CAN DRYER HISTORY: Z77.090 - Contact with and (suspected) exposure to asbestos COMPARISON: No comparisons available. Technique: 2 views obtained. Findings: Moderate pulmonary venous congestion. No pneumothorax. Moderate cardiomegaly. Mediastinal and hilar contours are within normal limits. Bony thorax no acute abnormality. Impression: Mild CHF Reviewed, dictated and finalized at location P. DRYER Impression: Mild CHF
--- OUTSIDE RECORDS SUMMARY | 2025-08-18 17:29 | XMS_ITS | Patient Health Record ---
Author Organization [facility] As [employer] Address [address] [place] [address] Care Team Providers Care Spike Maker Name Role Phone Graham Espino Unavailable [phone] Margaret Vargas Unavailable [phone] Deandre Loco Unavailable [phone] Allergies No Known Allergies Reason For Referral No Information Medications Medication SIG (Take, Route, Frequency, Duration) Notes Start Date End Date Status busPIRone HCl 15 MG Tablet 1 tablet Orally Once a day; Duration: 30 days 10 mg in the morning, afternoon and 15 at night Active DULoxetine HCl 60 MG Capsule Delayed Release Sprinkle 1 capsule Oral Once a day; Duration: 30 days Active Spravato (84 MG Dose) 28 MG/DEVICE Solution Therapy Pack 3 sprays in each nostril Nasally twice a week pt wants to know the cost before starting treatment 12/08/2024 Active metFORMIN HCl 500 MG Tablet 1 tablet with a meal Orally twice a day Active QUEtiapine Fumarate 100 MG Tablet 1 tablet at bedtime Orally Once a day; Duration: 90 days 01/08/2025 Active Spravato (56 MG Dose) 28 MG/DEVICE Solution Therapy Pack 2 sprays in each nostril Nasally once pt wants to know the cost before starting treatment 12/08/2024 Active Gabapentin 300 MG Capsule 1 capsule Oral three times a day; Duration: 90 days Active QUEtiapine Fumarate 100 MG Tablet 1 tablet Orally Once a day 01/08/2025 Active busPIRone HCl 10 MG Tablet 1 tablet Oral Twice a day; Duration: 90 days 10mg in the afternoon, 10 mg in the morning, afternoon and 15 at night Active Immunizations Vaccine Route Administration Date Status Comme nts [place] [facility] Covid-19 Vac cine 2nd dose Unknown 06/04/2022 Administered Social History Tobacco Use: Social History Observation Description Date Details (start date - stop date) Never Smoker NA - NA Sex Assigned At : Social History Observation Description Sex Assigned At Male Social History Miscellaneous: Social Info Question Answer Notes Advance Care Planning Are you your own decision-maker Yes Safety issues: Are there any firearms in the house? Ye s Social History Social Info Question Answer Notes Household: Marital Status: Number of Adults in household: 2 Number of Children in Household: 0 Level of Education: Finished High School Drug/Alcohol: Social Info Question Answer Notes Drugs Have you used drugs other than those for medical reasons in the past 12 months? No AUDIT-C (Standard) Did you have a drink containing alcohol in the past year? No Tobacco Use: Social Info Question Answer Notes Tobacco Control (Standard) Tobacco use: Nonsmoker Additional Details Category Social Info Options Details Migrated Social History Migrated Social History Alcohol Intake: None 07/07/2022,Tobacco Years: Never smoker 07/07/2022 Drug/Alcohol: Do you smoke marijuana? Den ies Problems Problem Type SNOMED Code ICD Code Onset Dates Problem Status W/U Status Risk Notes Problem Severe recurrent major depression without psychotic features (57958840) Major depressive disorder, recurrent severe without psychotic features (F33.2) Active confirmed Problem Generalized anxiety disorder (67066437) Generalized anxiety disorder (F41.1) Active confirmed Problem Depression Screening (873125157) Encounter for screening for depression (Z13.31) Active confirmed Problem Insomnia disorder related to another mental disorder (31533304) Insomnia related to another mental disorder (F51.05) Active confirmed Problem Memory impairment (410241986) Memory impairment (R41.3) Active confirmed Problem Severe major depression, single episode, without psychotic features (67078308) MDD (major depressive disorder), severe (F32.2) Active confirmed Problem Feeling suicidal (427840215) Passive suicidal ideations (R45.851) Active confirmed Problem Essential hypertension (03799580) Benign essential HTN (I10) Active confirmed Vital Signs Heart Rate 91 /min 12/08/2024 Height-cm 190.51 cm 12/08/2024 Blood pressure diastolic 100 mm Hg 12/08/2024 Weight-kg 157.85 kg 12/08/2024 Height 75.0048 in 12/08/2024 Blood pressure systolic 155 mm Hg 12/08/2024 Weight 348 lbs 12/08/2024 BMI 43.49 kg/m2 12/08/2024 Encounters Encounter Location Date Provider Diagnosis [employer] [address] [place] [address] 08/18/2024 Margaret Vargas Major depressive disorder, recurrent severe without psychotic features F33.2 ; Generalized anxiety disorder F41.1 ; Post-traumatic stress disorder, chronic F43.12 and MDD (major depressive disorder), severe F32.2 [facility], [employer] [address] [place] [address] 09/01/2024 Margaret Vargas Major depressive disorder, recurrent severe without psychotic features F33.2 ; Generalized anxiety disorder F41.1 ; Insomnia related to another mental disorder F51.05 and MDD (major depressive disorder), severe F32.2 [employer], [employer] [address] [place] [address] 12/01/2024 Deandre Clubb Encounter for screening for depression Z13.31 ; Insomnia related to another mental disorder F51.05 ; MDD (major depressive disorder), severe F32.2 ; Generalized anxiety disorder F41.1 ; Passive suicidal ideations R45.851 and Benign essential HTN I10 [facility] [address] [address] 12/08/2024 Graham Kenzie Encounter for screening for depression Z13.31 ; Benign essential HTN I10 ; Insomnia related to another mental disorder F51.05 ; MDD (major depressive disorder), severe F32.2 ; Generalized anxiety disorder F41.1 ; Passive suicidal ideations R45.851 and Memory impairment R41.3 [facility] [address] [place] [address] 12/24/2024 Graham Kenzie Memory impairment R41.3 [facility] [address] [place] [address] 01/08/2025 Deandre Clubb Insomnia related to another mental disorder F51.05 ; MDD (major depressive disorder), severe F32.2 ; Generalized anxiety disorder F41.1 ; Passive suicidal ideations R45.851 and Encounter for screening for depression Z13.31 [facility] [employer] [facility], [facility] [address] [place] [address] 11/27/2024 Graham Kenzie [facility] [employer] [facility] [address] [place] [address] 12/01/2024 [employer] [facility] [employer] [facility] [address] [place] [address] 12/01/2024 Graham Kenzie [facility] [employer] [facility] [address] [place] [address] 12/01/2024 [employer] [facility] [employer] [facility] [address] [place] [address] 01/14/2025 Graham Kenzie [facility] [employer] [facility] [address] [place] [address] 05/28/2025 Graham Espino Assessments Encounter Date Diagnosis (ICD Code) Assessment Notes Treatment Notes Treatment Clinical Notes Section Notes 08/18/2024 Major depressive disorder, recurrent severe without psychotic features (ICD-10 - F33.2) Assessment and Plan: 1. Anxiety Management - Maintain the current regimen of anxiety medication (5 mg, 10 mg, and 15 mg at night). - Encourage the practice of deep breathing exercises and progressive muscle relaxation techniques. - Consider the potential use of Spravato (nasal spray) and discuss this option with the psychiatrist during the appointment on September 08. 2. Depression Treatment - Monitor the effectiveness of the increased dosage of quetiapine for improving sleep. - Explore the possibility of light therapy or phototherapy to enhance mood during cloudy days or winter months. - Promote engagement in mentally stimulating activities, such as word finds, to improve mental health. 3. Emotional Regulation and Self-Talk - Practice identifying and challenging negative thoughts, replacing them with positive or balanced alternatives. - Utilize visualization techniques, for example, imagining thoughts as leaves floating downstream, to aid in emotional regulation. - Engage in relaxation and stress reduction activities, including the use of the sauna. 4. Sleep Disturbances - Continue the prescribed use of quetiapine for sleep. - Consider incorporating a protein shake an hour before bedtime to aid in sleep quality. - Monitor sleep patterns and address any changes or concerns in the next therapy session. Follow-up: - Schedule a therapy session for October 02 in the morning to evaluate progress and discuss further coping strategies and techniques. 08/18/2024 Generalized anxiety disorder (ICD-10 - F41.1) Assessment and Plan: 1. Anxiety Management - Maintain the current regimen of anxiety medication (5 mg, 10 mg, and 15 mg at night). - Encourage the practice of deep breathing exercises and progressive muscle relaxation techniques. - Consider the potential use of Spravato (nasal spray) and discuss this option with the psychiatrist during the appointment on September 08. 2. Depression Treatment - Monitor the effectiveness of the increased dosage of quetiapine for improving sleep. - Explore the possibility of light therapy or phototherapy to enhance mood during cloudy days or winter months. - Promote engagement in mentally stimulating activities, such as word finds, to improve mental health. 3. Emotional Regulation and Self-Talk - Practice identifying and challenging negative thoughts, replacing them with positive or balanced alternatives. - Utilize visualization techniques, for example, imagining thoughts as leaves floating downstream, to aid in emotional regulation. - Engage in relaxation and stress reduction activities, including the use of the sauna. 4. Sleep Disturbances - Continue the prescribed use of quetiapine for sleep. - Consider incorporating a protein shake an hour before bedtime to aid in sleep quality. - Monitor sleep patterns and address any changes or concerns in the next therapy session. Follow-up: - Schedule a therapy session for October 02 in the morning to evaluate progress and discuss further coping strategies and techniques. 09/01/2024 Major depressive disorder, recurrent severe without psychotic features (ICD-10 - F33.2) Assessment and Plan: 1. Asbestosis - The patient has been recently diagnosed with asbestosis, with fibers detected in the lungs. Awaiting further updates on the condition's stages within four to six weeks. - Encourage the patient to adhere to annual lung examinations as advised by their healthcare provider. Vigilantly monitor any symptom changes and promptly report these to the physician. 2. Anxiety and Obsessive Thoughts - The patient has voiced concerns regarding obsessive thoughts and a potential diagnosis of OCD. An OCD questionnaire (Y-BOCS) was completed during the session, indicating mild symptoms. - Plan to discuss the questionnaire results with Dr. Espino at the patient's upcoming appointment on September 08. Continue employing thought-challe nging and mindfulness techniques, including RAIN and leaves on a stream. Keep an eye on symptom changes and address them in subsequent sessions. 3. Depression - Reports from the patient highlight struggles with motivation affecting self-care and daily activities, alongside intrusive thoughts and feelings of being better off . - Continue leveraging cognitive behavioral therapy (CBT) methods to counteract negative thoughts and enhance mood. Motivate the patient to partake in activities that foster mental health, such as breathing exercises and engaging in puzzles. Monitor symptom changes and tackle them in future sessions. 4. Sleep and Eating Habits - The patient has reported suboptimal sleep and eating patterns, characterized by nocturnal eating and challenges in falling asleep without prior eating. - Encourage the patient to aim for an improvement in sleep and eating habits by September 03. Discuss approaches for establishing a regular sleep routine and adopting healthier eating habits. Track progress and confront any arising issues in upcoming sessions. 5. Social Anxiety - The patient has expressed a fear of misspeaking, especially in conversations with their daughters. - Continue to enhance communication skills and develop strategies for managing social anxiety. Urge the patient to apply these skills in daily interactions and monitor symptom changes. Address any emerging challenges in future sessions. Follow-up: - Schedule a follow-up appointment to assess the patient's progress and persist in addressing the identified concerns. 09/01/2024 Generalized anxiety disorder (ICD-10 - F41.1) Assessment and Plan: 1. Asbestosis - The patient has been recently diagnosed with asbestosis, with fibers detected in the lungs. Awaiting further updates on the condition's stages within four to six weeks. - Encourage the patient to adhere to annual lung examinations as advised by their healthcare provider. Vigilantly monitor any symptom changes and promptly report these to the physician. 2. Anxiety and Obsessive Thoughts - The patient has voiced concerns regarding obsessive thoughts and a potential diagnosis of OCD. An OCD questionnaire (Y-BOCS) was completed during the session, indicating mild symptoms. - Plan to discuss the questionnaire results with Dr. Espino at the patient's upcoming appointment on September 08. Continue employing thought-challe nging and mindfulness techniques, including RAIN and leaves on a stream. Keep an eye on symptom changes and address them in subsequent sessions. 3. Depression - Reports from the patient highlight struggles with motivation affecting self-care and daily activities, alongside intrusive thoughts and feelings of being better off . - Continue leveraging cognitive behavioral therapy (CBT) methods to counteract negative thoughts and enhance mood. Motivate the patient to partake in activities that foster mental health, such as breathing exercises and engaging in puzzles. Monitor symptom changes and tackle them in future sessions. 4. Sleep and Eating Habits - The patient has reported suboptimal sleep and eating patterns, characterized by nocturnal eating and challenges in falling asleep without prior eating. - Encourage the patient to aim for an improvement in sleep and eating habits by September 03. Discuss approaches for establishing a regular sleep routine and adopting healthier eating habits. Track progress and confront any arising issues in upcoming sessions. 5. Social Anxiety - The patient has expressed a fear of misspeaking, especially in conversations with their daughters. - Continue to enhance communication skills and develop strategies for managing social anxiety. Urge the patient to apply these skills in daily interactions and monitor symptom changes. Address any emerging challenges in future sessions. Follow-up: - Schedule a follow-up appointment to assess the patient's progress and persist in addressing the identified concerns. 12/01/2024 Encounter for screening for depression (ICD-10 - Z13.31) 12/08/2024 Encounter for screening for depression (ICD-10 - Z13.31) 01/08/2025 Insomnia related to another mental disorder (ICD-10 - F51.05) 12/24/2024 Memory impairment (ICD-10 - R41.3) Here is a structured analysis and non-pharmacologic treatment recommendations for Taz Velasco based on the [facility] Cognitive Assessment Report and additional records: Summary of Findings: Cognitive Assessment ([facility]): Attention (Feature Match): Below average (74). Response Inhibition (Double Trouble): Below average (81). Mental Rotation (Rotations): Below average (84). Verbal Short-Term Memory (Digit Span): Borderline below average (86). Episodic Memory ([facility]): Average (93). Visuospatial Working Memory (Number Ladder): Average (97). Additional Evaluations: SLUMS Score: 23, suggesting mild cognitive impairment (MCI). IQCODE-SR: Average score 4.75, supporting subjective cognitive decline. IADL Score: 4 of 5, indicating some functional dependency, particularly in shopping and financial aid administrator. 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 Significant concerns are evident in attention, executive function, spatial reasoning, and short-term memory. Interpretation: Taz demonstrates a clear pattern of executive dysfunction and cognitive slowing, particularly in areas critical for independent living. His cognitive profile combined with functional dependence points to an elevated risk of progression from mild cognitive impairment to a more significant cognitive disorder. Non-Pharmacologic Treatment Recommendations: Cognitive Rehabilitation Therapy: Initiate therapy focusing on attention training, response inhibition exercises, and memory support strategies. Use compensatory techniques such as memory notebooks, alarms, and structured checklists. Occupational Therapy for Instrumental Activities: Engage with occupational therapy to strengthen skills in shopping, medication management, and financial handling. Implement supervised practice sessions for at-risk tasks to maintain functional independence as long as possible. Environmental Adaptations: Simplify daily living spaces with visual cues and labels. Set up automatic bill payments and scheduled shopping lists to reduce cognitive load. Attention and Executive Function Training: Use computerized cognitive exercises that target attention span, impulse control, and visual-spatial reasoning. Gradually increase task complexity over time to build cognitive endurance. Routine Physical Activity: Daily moderate-intensit y aerobic exercises such as walking, swimming, or stationary cycling to promote brain health and cardiovascular function. Recommend at least 30 minutes per day, five days a week. Diet and Sleep Optimization: Implement a Mediterranean-sty le diet rich in omega-3 fatty acids, antioxidants, and fiber. Strict sleep hygiene practices to maintain stable cognitive performance. Social and Cognitive Engagement: Encourage participation in structured social activities and cognitively stimulating hobbies such as puzzles, games, or book clubs. Limit isolation to help preserve cognitive reserve. Mindfulness and Stress Management: Introduce daily mindfulness meditation and relaxation exercises to reduce cognitive stress. Practice structured breathing and progressive muscle relaxation. Close Monitoring: Schedule re-evaluation of cognitive function every six months. Monitor for any decline in daily function or behavioral changes, and coordinate with a primary care provider and neurology as needed. Family and Caregiver Involvement: Educate family members about cognitive changes and strategies for supporting independence. Create a safety plan for managing finances, medications, and transportation if further decline occurs. 01/08/2025 MDD (major depressive disorder), severe (ICD-10 - F32.2) 12/08/2024 Benign essential HTN (ICD-10 - I10) 12/01/2024 Insomnia related to another mental disorder (ICD-10 - F51.05) 09/01/2024 Insomnia related to another mental disorder (ICD-10 - F51.05) Assessment and Plan: 1. Asbestosis - The patient has been recently diagnosed with asbestosis, with fibers detected in the lungs. Awaiting further updates on the condition's stages within four to six weeks. - Encourage the patient to adhere to annual lung examinations as advised by their healthcare provider. Vigilantly monitor any symptom changes and promptly report these to the physician. 2. Anxiety and Obsessive Thoughts - The patient has voiced concerns regarding obsessive thoughts and a potential diagnosis of OCD. An OCD questionnaire (Y-BOCS) was completed during the session, indicating mild symptoms. - Plan to discuss the questionnaire results with Dr. Espino at the patient's upcoming appointment on September 08. Continue employing thought-challe nging and mindfulness techniques, including RAIN and leaves on a stream. Keep an eye on symptom changes and address them in subsequent sessions. 3. Depression - Reports from the patient highlight struggles with motivation affecting self-care and daily activities, alongside intrusive thoughts and feelings of being better off . - Continue leveraging cognitive behavioral therapy (CBT) methods to counteract negative thoughts and enhance mood. Motivate the patient to partake in activities that foster mental health, such as breathing exercises and engaging in puzzles. Monitor symptom changes and tackle them in future sessions. 4. Sleep and Eating Habits - The patient has reported suboptimal sleep and eating patterns, characterized by nocturnal eating and challenges in falling asleep without prior eating. - Encourage the patient to aim for an improvement in sleep and eating habits by September 03. Discuss approaches for establishing a regular sleep routine and adopting healthier eating habits. Track progress and confront any arising issues in upcoming sessions. 5. Social Anxiety - The patient has expressed a fear of misspeaking, especially in conversations with their daughters. - Continue to enhance communication skills and develop strategies for managing social anxiety. Urge the patient to apply these skills in daily interactions and monitor symptom changes. Address any emerging challenges in future sessions. Follow-up: - Schedule a follow-up appointment to assess the patient's progress and persist in addressing the identified concerns. 08/18/2024 Post-traumati c stress disorder, chronic (ICD-10 - F43.12) Assessment and Plan: 1. Anxiety Management - Maintain the current regimen of anxiety medication (5 mg, 10 mg, and 15 mg at night). - Encourage the practice of deep breathing exercises and progressive muscle relaxation techniques. - Consider the potential use of Spravato (nasal spray) and discuss this option with the psychiatrist during the appointment on Vanessa 6th. 2. Depression Treatment - Monitor the effectiveness of the increased dosage of quetiapine for improving sleep. - Explore the possibility of light therapy or phototherapy to enhance mood during cloudy days or winter months. - Promote engagement in mentally stimulating activities, such as word finds, to improve mental health. 3. Emotional Regulation and Self-Talk - Practice identifying and challenging negative thoughts, replacing them with positive or balanced alternatives. - Utilize visualization techniques, for example, imagining thoughts as leaves floating downstream, to aid in emotional regulation. - Engage in relaxation and stress reduction activities, including the use of the sauna. 4. Sleep Disturbances - Continue the prescribed use of quetiapine for sleep. - Consider incorporating a protein shake an hour before bedtime to aid in sleep quality. - Monitor sleep patterns and address any changes or concerns in the next therapy session. Follow-up: - Schedule a therapy session for October 02 in the morning to evaluate progress and discuss further coping strategies and techniques. 12/01/2024 Generalized anxiety disorder (ICD-10 - F41.1) 12/01/2024 MDD (major depressive disorder), severe (ICD-10 - F32.2) 01/08/2025 Generalized anxiety disorder (ICD-10 - F41.1) 12/08/2024 Insomnia related to another mental disorder (ICD-10 - F51.05) 12/08/2024 MDD (major depressive disorder), severe (ICD-10 - F32.2) 01/08/2025 Passive suicidal ideations (ICD-10 - R45.851) discussed crisis interventions discussed crisis hotline '988' discussed when to seek emergency services pt reports his protective factors are his significant other and grandchildren. discussed spravato treatment and TMS treatment options. given printed information on spravato and patient wanting to look over education pamphlet before filling out [employer] paperwork for spravato. Assessment and plan reviewed with patient Call for problems with medication, side effects or need for dosage change Compliance issues reviewed Discussed the risks/benefits of this medication Discussed medication side effects Return if symptoms worsen Treatment options reviewed. discussed that it can take weeks to see full therapeutic effects of psychotropic medications. discussed when to seek emergency services. discussed crisis prevention hotline 988. 12/01/2024 Passive suicidal ideations (ICD-10 - R45.851) discussed crisis interventions discussed crisis hotline '988' discussed when to seek emergency services pt reports his protective factors are his significant other and grandchildren. discussed spravato treatment and TMS treatment options. given printed information on spravato and patient wanting to look over education pamphlet before filling out [employer] paperwork for spravato. Assessment and plan reviewed with patient Call for problems with medication, side effects or need for dosage change Compliance issues reviewed Discussed the risks/benefits of this medication Discussed medication side effects Return if symptoms worsen Treatment options reviewed. discussed that it can take weeks to see full therapeutic effects of psychotropic medications. discussed when to seek emergency services. discussed crisis prevention hotline 988. 08/18/2024 MDD (major depressive disorder), severe (ICD-10 - F32.2) Assessment and Plan: 1. Anxiety Management - Maintain the current regimen of anxiety medication (5 mg, 10 mg, and 15 mg at night). - Encourage the practice of deep breathing exercises and progressive muscle relaxation techniques. - Consider the potential use of Spravato (nasal spray) and discuss this option with the psychiatrist during the appointment on September 08. 2. Depression Treatment - Monitor the effectiveness of the increased dosage of quetiapine for improving sleep. - Explore the possibility of light therapy or phototherapy to enhance mood during cloudy days or winter months. - Promote engagement in mentally stimulating activities, such as word finds, to improve mental health. 3. Emotional Regulation and Self-Talk - Practice identifying and challenging negative thoughts, replacing them with positive or balanced alternatives. - Utilize visualization techniques, for example, imagining thoughts as leaves floating downstream, to aid in emotional regulation. - Engage in relaxation and stress reduction activities, including the use of the sauna. 4. Sleep Disturbances - Continue the prescribed use of quetiapine for sleep. - Consider incorporating a protein shake an hour before bedtime to aid in sleep quality. - Monitor sleep patterns and address any changes or concerns in the next therapy session. Follow-up: - Schedule a therapy session for October 02 in the morning to evaluate progress and discuss further coping strategies and techniques. 09/01/2024 MDD (major depressive disorder), severe (ICD-10 - F32.2) Assessment and Plan: 1. Asbestosis - The patient has been recently diagnosed with asbestosis, with fibers detected in the lungs. Awaiting further updates on the condition's stages within four to six weeks. - Encourage the patient to adhere to annual lung examinations as advised by their healthcare provider. Vigilantly monitor any symptom changes and promptly report these to the physician. 2. Anxiety and Obsessive Thoughts - The patient has voiced concerns regarding obsessive thoughts and a potential diagnosis of OCD. An OCD questionnaire (Y-BOCS) was completed during the session, indicating mild symptoms. - Plan to discuss the questionnaire results with Dr. Espino at the patient's upcoming appointment on September 08. Continue employing thought-challe nging and mindfulness techniques, including RAIN and leaves on a stream. Keep an eye on symptom changes and address them in subsequent sessions. 3. Depression - Reports from the patient highlight struggles with motivation affecting self-care and daily activities, alongside intrusive thoughts and feelings of being better off . - Continue leveraging cognitive behavioral therapy (CBT) methods to counteract negative thoughts and enhance mood. Motivate the patient to partake in activities that foster mental health, such as breathing exercises and engaging in puzzles. Monitor symptom changes and tackle them in future sessions. 4. Sleep and Eating Habits - The patient has reported suboptimal sleep and eating patterns, characterized by nocturnal eating and challenges in falling asleep without prior eating. - Encourage the patient to aim for an improvement in sleep and eating habits by September 03. Discuss approaches for establishing a regular sleep routine and adopting healthier eating habits. Track progress and confront any arising issues in upcoming sessions. 5. Social Anxiety - The patient has expressed a fear of misspeaking, especially in conversations with their daughters. - Continue to enhance communication skills and develop strategies for managing social anxiety. Urge the patient to apply these skills in daily interactions and monitor symptom changes. Address any emerging challenges in future sessions. Follow-up: - Schedule a follow-up appointment to assess the patient's progress and persist in addressing the identified concerns. 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 Further pulmonary testing is needed to [...] ensure accuracy, there may be errors, including mobile engineer inaccuracies and misspellings of medication names. This document should not be considered a verbatim record, and any discrepancies should be verified with the provider. 12/24/2024 Other referral to the local [facility] or national office of the Alzheimer's Association ( ; http://www.alz.org ), the Alzheimer's Disease Education and Referral Center (ADENC) ( ; http://www.garry.nih .gov/Alzheimers/), 01/08/2025 Other Major [...] buspirone - Provided crisis prevention hotline number (203) - Follow-up: Twice weekly during Spravato treatment [...] efforts have been made to correct them. 12/01/2024 Other SPRAVATO is contraindicated in patients [...] End Date [facility] [address] [address] [place] [address] [id number] TAZ VELASCO Self - patient is the insured [employer] Medicare Supplement [address] [address] [place] [address] [id number] TAZ VELASCO Self - patient is [...] hypertension Surgical History Surgery Date(Month/Year) Surgical procedure ([id number]) hernia repair knee surgery hand surgery shoulder surgery back surgery Hospitalization History Reason Date(Month/Year) pulmonary embolism
--- OUTSIDE RECORDS SUMMARY | 2025-08-18 17:29 | XMS_ITS | Clinical Summary ---
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 Gender Identity Not on file Sexual Orientation Not on file Plan of Treatment Upcoming Encounters Date Type Department Care Team (Late st Contact Info) Description 03/11/2026 1:20 PM CDT Office Visit [facility] [address] [place] [address] Keshawn Walker MD [address] [place] [address] Health Maintenance Due Date Last Done Comments Colorectal Cancer Screening Colonoscopy (10 Years) 1960 Hepatitis C 1977 DTaP, Tdap and Td Vaccines ( 1 - Tdap) 1978 Pneumococcal Vaccine: 50+ Ye ars (1 of 1 - PCV) 2009 Zoster Vaccines (1 of 2) 2009 COVID-19 Vaccine ( - 2024-2 6 season) 2025 Influenza Adult (#1) 2025 RSV Immunization or 60+ Years (1 - 1-dose 75+ series) 2034 Hepatitis A Vaccines Aged Out No long er eligible based on patient's age to complete this topic Meningococcal B Vaccine Aged Out No l onger eligible based on patient's age to complete this topic Meningococcal Vaccine Aged Out No mackenzie kevon eligible based on patient's age to complete this topic RSV Immunizations Under 20 Months Aged Out No longer eligible based on patient's age to complete this topic Insurance [facility]
== END 2025-08-18 15:07 | disposition home or self-care (01) ==
PROVIDERS: PCP Emergency Medicine; Visit Provider Nurse Practitioner Family
DX: Z77.090 Contact with and (suspected) exposure to asbestos (principal); I50.9 Heart failure, unspecified
CPT/HCPCS: 71046